=== PATIENT | female | born 1970 | race Caucasian/White ===

== ENCOUNTER 2016-07-28 12:28 | Emergency (ER) | payer BC ==
[~2016-07-28 12:28] MED LIST: ACETAMINOPHEN PR; ADDERALL 10 MG10 M1; ALBUTEROL17 GM INH; ALDACTONE100 MG; AMITRYPTYLINE PO; ATORVASTATIN CA80 MG; AUGMENTIN875 MG PO; BAYER CHEWABLE81 MG; BRILINTA90 MG; CIPRO HC10 ML OT; CYMBALTA PO; FLONASE 0.05% N16 G1; FLOXIN10 ML AU; GINKGO BILOBA120 M2; HYDROCODON-ACE1 EAC7; IBUPROFEN800 MG PO; LORTAB 7.51 TAB PO; MEDROL4 MG/DOSE-; METOPROLOL SUCC25 MG; PHENERGAN DM PO; PROTONIX40 MG/BLIS; TYLENOL #3 PO; VOLTAREN75 MG PO; ZOFRAN ODT PO
== END 2016-07-28 12:55 | disposition home or self-care (01) ==
LOC: SED 12:28
DX: H66.92 Otitis media, unspecified, left ear (principal); H60.312 Diffuse otitis externa, left ear; I25.2 Old myocardial infarction; F17.210 Nicotine dependence, cigarettes, uncomplicated; Z88.8 Allergy status to other drugs, medicaments and biological substances; Z79.899 Other long term (current) drug therapy
CPT/HCPCS: 99282